=== PATIENT | female | born 1995 ===

== ENCOUNTER → 2021-04-10 08:53 | Outpatient (CLI) | payer OTHER, SELFPAY ==
[2021-04-10 20:19] LABS: COVID19 - ORCAS (NP or Nasal) Negative (Negative)
== END ==
PROVIDERS: PCP Physician Assistant; Visit Provider Physician Assistant Medical
DX: Z20.822 Contact with and (suspected) exposure to COVID-19 (principal)
CPT/HCPCS: U0003

== ENCOUNTER → 2021-08-03 10:21 | Outpatient (CLI) | payer OTHER, MEDICAID, SELFPAY | PROVIDERS: PCP Physician Assistant; Visit Provider Family Medicine | DX: N39.0 Urinary tract infection, site not specified (principal) | CPT/HCPCS: 81002; 87077; 87086; 87186 ==

== ENCOUNTER → 2022-06-21 13:49 | Outpatient (CLI) | payer OTHER, MEDICAID, SELFPAY ==
[2022-06-23 16:20] LABS: Fecal Immunochemical Test Negative (Negative)
== END ==
PROVIDERS: PCP Physician Assistant; Visit Provider Physician Assistant
DX: K58.2 Mixed irritable bowel syndrome (principal); R10.32 Left lower quadrant pain
CPT/HCPCS: 82274